=== PATIENT | male | born 1935 | race Caucasian/White ===

== ENCOUNTER → 2017-01-03 | Outpatient (CLI) | payer MEDICARE, OTHER ==
[~2017-01-03] MED LIST: ALLO100T PO; AMLO10TA2 PO; ASPI81CH49 PO; ATEN50TA80 PO; CALC0.25 PO; CLOP75TA28 PO; FURO20TA3 PO; GABA300C PO; INSUINJ2 SC; LISI-709 PO; NITROSTAT SL; PRAV20TA3 PO; TAM04C PO; [UNRECOGNIZED DRUG - OTHER] PO; [UNRECOGNIZED DRUG - OTHER] SC
== END | disposition home or self-care (01) ==
LOC: XYW 11:00
PROVIDERS: ATTEND Internal Medicine
DX: I08.3 Combined rheumatic disorders of mitral, aortic and tricuspid valves (principal); I25.10 Atherosclerotic heart disease of native coronary artery without angina pectoris; I31.3 Pericardial effusion (noninflammatory); R55 Syncope and collapse
CPT/HCPCS: 93306

== ENCOUNTER → 2017-02-13 | Outpatient (CLI) | payer MEDICARE, OTHER ==
[2017-02-13 10:41] LABS: Basophils # (auto) 0 uL; Basophils % (auto) 0.5 % (0.0-2.0); CONDITION Y; Eosinophils # (auto) 0.5 uL; Eosinophils % (auto) 4.9 % (0.0-7.0); Hematocrit 33.1 % (41.0-53.0); Hemoglobin 11.2 g/dL (13.5-17.5); Lymphocytes # (auto) 1.5 uL; Lymphocytes % (auto) 14.9 % (10.0-50.0); Mean Corpuscular Hemoglobin 32.7 pg (28.0-32.0); Mean Corpuscular Hgb Conc. 33.9 g/dL (32.0-36.0); Mean Corpuscular Volume 96.5 fL (80.0-100.0); Mean Platelet Volume 8.4 fL (7.4-10.4); Monocytes # (auto) 0.7 uL; Monocytes % (auto) 7.2 % (0.0-12.0); Neutrophils # (auto) 7.3 uL; Neutrophils % (auto) 72.5 % (37.0-80.0); Platelet Count (auto) 257 10^3/uL (140-450); Red Cell Distribution Width 14.5 % (11.6-16.0)
[2017-02-13 10:47] LABS: Albumin 3.1 g/dL (3.4-5.0); BUN/Creatinine Ratio 17.5; Bilirubin, Total 0.4 mg/dL (0.2-1.0); Calcium 8.6 mg/dL (8.5-10.1); Phosphorus 3.5 mg/dL (2.5-4.90); Potassium 5.1 mmol/L (3.5-5.1); Total Protein 6.7 g/dL (6.4-8.2); Uric Acid 10.9 mg/dL (3.5-7.2)
[2017-02-13 11:02] LABS: Urine Bilirubin Negative (Negative); Urine Blood Negative /uL (Negative); Urine Color Yellow (Yellow); Urine Glucose Normal (Normal); Urine Hyaline Cast FEW /lpf (0 - 2); Urine Ketone Negative (Negative); Urine Nitrite Negative (Negative); Urine RBC 1 /hpf (0 - 3); Urine Squamous Epithelial Cell FEW /hpf (<5); Urine Urobilinogen Normal (Negative)
== END | disposition home or self-care (01) ==
LOC: LAB 10:04
PROVIDERS: ATTEND Internal Medicine
DX: N40.1 Benign prostatic hyperplasia with lower urinary tract symptoms (principal); N13.4 Hydroureter; E11.9 Type 2 diabetes mellitus without complications; N39.0 Urinary tract infection, site not specified; I13.0 Hypertensive heart and chronic kidney disease with heart failure and stage 1 through stage 4 chronic kidney disease, or unspecified chronic kidney disease; I50.32 Chronic diastolic (congestive) heart failure; N18.4 Chronic kidney disease, stage 4 (severe)
CPT/HCPCS: 36415; 80053; 81001; 82043; 83970; 84100; 84153; 84154; 84550; 85025

== ENCOUNTER → 2017-03-14 | Outpatient (CLI) | payer MEDICARE, OTHER ==
[2017-03-14 10:00] LABS: Basophils # (auto) 0.1 uL; Basophils % (auto) 0.8 % (0.0-2.0); Eosinophils # (auto) 0.6 uL; Hematocrit 32.9 % (41.0-53.0); Hemoglobin 11.4 g/dL (13.5-17.5); Lymphocytes # (auto) 1.9 uL; Lymphocytes % (auto) 17.6 % (10.0-50.0); Mean Corpuscular Hemoglobin 33.9 pg (28.0-32.0); Mean Corpuscular Hgb Conc. 34.7 g/dL (32.0-36.0); Mean Corpuscular Volume 97.9 fL (80.0-100.0); Mean Platelet Volume 7.4 fL (6.9-10.8); Monocytes # (auto) 0.8 uL; Neutrophils # (auto) 7.2 uL; Neutrophils % (auto) 67.6 % (37.0-80.0); Platelet Count (auto) 219 10^3/uL (140-450); Red Cell Distribution Width 15.1 % (11.8-14.3); White Blood Cell 10.6 10^3/uL (4.4-10.8)
[2017-03-14 10:54] LABS: Albumin 3.1 g/dL (3.4-5.0); BUN/Creatinine Ratio 17.2; Bilirubin, Total 0.4 mg/dL (0.2-1.0); Calcium 8.7 mg/dL (8.5-10.1); Phosphorus 3.7 mg/dL (2.5-4.90); Potassium 4.5 mmol/L (3.5-5.1); Total Protein 6.8 g/dL (6.4-8.2); Uric Acid 8.6 mg/dL (3.5-7.2)
== END | disposition home or self-care (01) ==
LOC: LAB 09:44
PROVIDERS: ATTEND Internal Medicine
DX: E11.22 Type 2 diabetes mellitus with diabetic chronic kidney disease (principal); I13.0 Hypertensive heart and chronic kidney disease with heart failure and stage 1 through stage 4 chronic kidney disease, or unspecified chronic kidney disease; I50.32 Chronic diastolic (congestive) heart failure; N18.3 Chronic kidney disease, stage 3 (moderate)
CPT/HCPCS: 36415; 80053; 82043; 83970; 84100; 84550; 85025

== ENCOUNTER → 2017-03-28 | Outpatient (CLI) | payer MEDICARE, OTHER | END | disposition home or self-care (01) | LOC: Rad HDHVI 13:50 | PROVIDERS: ATTEND Internal Medicine Cardiovascular Disease | DX: I25.10 Atherosclerotic heart disease of native coronary artery without angina pectoris (principal); I13.0 Hypertensive heart and chronic kidney disease with heart failure and stage 1 through stage 4 chronic kidney disease, or unspecified chronic kidney disease; I50.32 Chronic diastolic (congestive) heart failure; N18.3 Chronic kidney disease, stage 3 (moderate) | CPT/HCPCS: 93306; 93880 ==

== ENCOUNTER → 2017-04-03 | Outpatient (CLI) | payer MEDICARE, OTHER ==
[~2017-04-03] MED LIST changes: +ADENOSINE 69 MG in GIVE UN-DILUTED 0 ML IV ONE; +ADENOSINE 90 MG/30 ML INJ IV ONE
== END | disposition home or self-care (01) ==
LOC: Rad HDHVI 10:06
PROVIDERS: ATTEND Internal Medicine Cardiovascular Disease
DX: I12.9 Hypertensive chronic kidney disease with stage 1 through stage 4 chronic kidney disease, or unspecified chronic kidney disease (principal); N18.3 Chronic kidney disease, stage 3 (moderate); E78.2 Mixed hyperlipidemia; I25.10 Atherosclerotic heart disease of native coronary artery without angina pectoris; I25.2 Old myocardial infarction; G62.9 Polyneuropathy, unspecified; Z95.5 Presence of coronary angioplasty implant and graft
CPT/HCPCS: 78452; 93005; 96374; 96375; A9500; J0153

== ENCOUNTER 2017-07-02 23:54 | Emergency (ER) | payer MEDICARE, OTHER ==
[~2017-07-02] VITALS: Ht 167.6 cm; Wt 76.2 kg
[~2017-07-02 23:54] MED LIST changes: -ADENOSINE 69 MG in GIVE UN-DILUTED 0 ML IV ONE; -ADENOSINE 90 MG/30 ML INJ IV ONE
[2017-07-03] MEDS ORDERED: ONDANSETRON ODT 4 MG TAB PO ONE (01:00)
[2017-07-03 01:20] LABS: Hematocrit 38.2 % (41.0-53.0); Hemoglobin 12.6 g/dL (13.5-17.5); Mean Corpuscular Hemoglobin 31.9 pg (28.0-32.0); Mean Corpuscular Volume 96.5 fL (80.0-100.0); Platelet Count (auto) 253 10^3/uL (140-450); Red Blood Cells 3.96 10^6/uL (4.5-5.90); Red Cell Distribution Width 15.2 % (11.8-14.3); White Blood Cell 15.8 10^3/uL (4.4-10.8)
[2017-07-03 01:25] LABS: Basophils % (manual) 0 (0.0-2.0); Blast Cells 0; Eosinophils % (manual) 0 (0-7); Metamyelocytes % 0; Myelocytes % 0; Promyelocytes % 0; Reactive Lymphocytes 0
[2017-07-03 01:29] LABS: Albumin 3.2 g/dL (3.4-5.0); BUN/Creatinine Ratio 15.4; Calcium 8.4 mg/dL (8.5-10.1); Potassium 4.6 mmol/L (3.5-5.1)
[2017-07-03 01:33] LABS: Bilirubin, Total 0.5 mg/dL (0.2-1.0)
[2017-07-03 01:38] VITALS: BP 123/93
[2017-07-03] MEDS ORDERED: ONDANSETRON HCL 4 MG/2 ML VIAL IV ONE (01:45)
[2017-07-03 01:57] LABS: Band Neutrophils % (manual) 2; Lymphocytes % (manual) 5 (10.0-50.0); Monocytes % (manual) 1 (0-12)
== END 2017-07-03 03:44 | disposition home or self-care (01) ==
LOC: ER 23:56
DX: E11.649 Type 2 diabetes mellitus with hypoglycemia without coma (principal); E11.22 Type 2 diabetes mellitus with diabetic chronic kidney disease; I13.0 Hypertensive heart and chronic kidney disease with heart failure and stage 1 through stage 4 chronic kidney disease, or unspecified chronic kidney disease; N18.3 Chronic kidney disease, stage 3 (moderate); I50.9 Heart failure, unspecified; Z79.4 Long term (current) use of insulin; E78.5 Hyperlipidemia, unspecified; I25.2 Old myocardial infarction; Z79.82 Long term (current) use of aspirin; Z88.0 Allergy status to penicillin
CPT/HCPCS: 36415; 71046; 80053; 85007; 85027; 94761; 96374; 99285; J2405

== ENCOUNTER → 2017-10-06 | Outpatient (CLI) | payer MEDICARE, OTHER ==
[2017-10-06 12:48] LABS: Basophils # (auto) 0.1 uL; Basophils % (auto) 0.8 % (0.0-2.0); Eosinophils # (auto) 0.5 uL; Eosinophils % (auto) 4.5 % (0.0-7.0); Hematocrit 35.9 % (41.0-53.0); Hemoglobin 11.9 g/dL (13.5-17.5); Lymphocytes # (auto) 1.6 uL; Lymphocytes % (auto) 15.8 % (10.0-50.0); Mean Corpuscular Hemoglobin 32.8 pg (28.0-32.0); Mean Corpuscular Hgb Conc. 33.2 g/dL (32.0-36.0); Mean Corpuscular Volume 98.7 fL (80.0-100.0); Monocytes # (auto) 0.8 uL; Monocytes % (auto) 7.3 % (0.0-12.0); Neutrophils # (auto) 7.4 uL; Neutrophils % (auto) 71.6 % (37.0-80.0); Platelet Count (auto) 217 10^3/uL (140-450); Red Blood Cells 3.64 10^6/uL (4.5-5.90); Red Cell Distribution Width 15.7 % (11.8-14.3); White Blood Cell 10.4 10^3/uL (4.4-10.8)
[2017-10-06 13:28] LABS: BUN/Creatinine Ratio 17.1; Bilirubin, Total 0.3 mg/dL (0.2-1.0); Calcium 8.7 mg/dL (8.5-10.1); Potassium 4.8 mmol/L (3.5-5.1); Total Protein 6.5 g/dL (6.4-8.2)
== END | disposition home or self-care (01) ==
LOC: LAB 12:10
PROVIDERS: ATTEND Internal Medicine
DX: E11.22 Type 2 diabetes mellitus with diabetic chronic kidney disease (principal); N18.4 Chronic kidney disease, stage 4 (severe); I12.9 Hypertensive chronic kidney disease with stage 1 through stage 4 chronic kidney disease, or unspecified chronic kidney disease; M06.9 Rheumatoid arthritis, unspecified; Z79.82 Long term (current) use of aspirin; Z79.4 Long term (current) use of insulin; Z79.899 Other long term (current) drug therapy
CPT/HCPCS: 36415; 80053; 83036; 83970; 84100; 84550; 85025

== ENCOUNTER → 2018-05-02 | Outpatient (CLI) | payer MEDICARE, OTHER ==
[~2018-05-02] MED LIST changes: -ALLO100T PO; -AMLO10TA2 PO; +AMLO5TAB13 PO; +ATEN-60 PO; -ATEN50TA80 PO; -FURO20TA3 PO; -INSUINJ2 SC; +INSUINJ48 SC; -LISI-709 PO; -[UNRECOGNIZED DRUG - OTHER] PO; -[UNRECOGNIZED DRUG - OTHER] SC
[2018-05-02 16:30] LABS: Basophils # (auto) 0.1 uL; Basophils % (auto) 0.8 % (0.0-2.0); Eosinophils # (auto) 0.5 uL; Eosinophils % (auto) 6.2 % (0.0-7.0); Hemoglobin 9.9 g/dL (13.5-17.5); Lymphocytes # (auto) 1.3 uL; Mean Corpuscular Hemoglobin 33.4 pg (28.0-32.0); Mean Corpuscular Hgb Conc. 33.1 g/dL (32.0-36.0); Mean Corpuscular Volume 101.1 fL (80.0-100.0); Monocytes # (auto) 0.6 uL; Monocytes % (auto) 7.9 % (0.0-12.0); Neutrophils # (auto) 4.9 uL; Neutrophils % (auto) 67.1 % (37.0-80.0); Nucleated Red Blood Cells % 0.1 %; Platelet Count (auto) 211 10^3/uL (140-450); Red Blood Cells 2.97 10^6/uL (4.5-5.90); Red Cell Distribution Width 16.1 % (11.8-14.3); White Blood Cell 7.3 10^3/uL (4.4-10.8)
[2018-05-02 16:46] LABS: Albumin 2.9 g/dL (3.4-5.0); Calcium 8.4 mg/dL (8.5-10.1); Potassium 4.1 mmol/L (3.5-5.1)
[2018-05-02 16:50] LABS: Bilirubin, Total 0.3 mg/dL (0.2-1.0); Total Protein 6.2 g/dL (6.4-8.2)
[2018-05-02 16:54] LABS: BUN/Creatinine Ratio 15.1
[2018-05-03 09:02] LABS: Hepatitis B Surface Antibody Negative
[2018-05-03 10:15] LABS: Hepatitis A Ab IgM Negative; Hepatitis B Core Total AB Negative; Hepatitis B Surface Antigen Negative (Negative); Hepatitis C Antibody Negative (Negative)
[2018-05-07 16:24] LABS: Hepatitis B Core IgM Negative
== END | disposition home or self-care (01) ==
LOC: LAB 15:42
PROVIDERS: ATTEND Internal Medicine
DX: E11.620 Type 2 diabetes mellitus with diabetic dermatitis (principal); E11.22 Type 2 diabetes mellitus with diabetic chronic kidney disease; I13.0 Hypertensive heart and chronic kidney disease with heart failure and stage 1 through stage 4 chronic kidney disease, or unspecified chronic kidney disease; N18.9 Chronic kidney disease, unspecified; I50.9 Heart failure, unspecified
CPT/HCPCS: 36415; 80053; 83036; 85025; 85652; 86225; 86235; 86704; 86705; 86706; 86709; 86803; 86812; 87340

== ENCOUNTER → 2018-06-28 | Outpatient (CLI) | payer MEDICARE, OTHER ==
[2018-06-28 15:35] LABS: Basophils # (auto) 0.1 uL; Basophils % (auto) 0.8 % (0.0-2.0); Eosinophils # (auto) 0.5 uL; Eosinophils % (auto) 6.1 % (0.0-7.0); Hematocrit 29.1 % (41.0-53.0); Hemoglobin 9.8 g/dL (13.5-17.5); Lymphocytes # (auto) 1.6 uL; Lymphocytes % (auto) 18.4 % (10.0-50.0); Mean Corpuscular Hemoglobin 33.9 pg (28.0-32.0); Mean Corpuscular Hgb Conc. 33.7 g/dL (32.0-36.0); Mean Corpuscular Volume 100.4 fL (80.0-100.0); Monocytes # (auto) 0.7 uL; Monocytes % (auto) 7.4 % (0.0-12.0); Neutrophils % (auto) 67.3 % (37.0-80.0); Nucleated Red Blood Cells % 0.1 %; Platelet Count (auto) 186 10^3/uL (140-450); Red Cell Distribution Width 15.4 % (11.8-14.3)
[2018-06-28 15:52] LABS: Potassium 4.2 mmol/L (3.5-5.1)
[2018-06-28 15:59] LABS: Albumin 2.7 g/dL (3.4-5.0); BUN/Creatinine Ratio 15.1; Bilirubin, Total 0.3 mg/dL (0.2-1.0); Calcium 7.9 mg/dL (8.5-10.1); Total Protein 5.7 g/dL (6.4-8.2); Uric Acid 5.1 mg/dL (3.5-7.2)
[2018-06-28 16:00] LABS: Free T4 (Free Thyroxine) 0.88 ng/dL (0.89-1.76)
[2018-06-28 16:25] LABS: Prostate Specific Antigen 4.25 ng/mL (0.0-4.0)
== END | disposition home or self-care (01) ==
LOC: LAB 14:56
PROVIDERS: ATTEND Internal Medicine
DX: E11.22 Type 2 diabetes mellitus with diabetic chronic kidney disease (principal); I13.0 Hypertensive heart and chronic kidney disease with heart failure and stage 1 through stage 4 chronic kidney disease, or unspecified chronic kidney disease; I50.9 Heart failure, unspecified; N18.3 Chronic kidney disease, stage 3 (moderate); M25.50 Pain in unspecified joint; R63.4 Abnormal weight loss; R39.15 Urgency of urination; R35.0 Frequency of micturition
CPT/HCPCS: 36415; 80053; 83036; 83970; 84153; 84154; 84439; 84443; 84550; 85025; 86038; 86200; 86431

== ENCOUNTER → 2018-08-07 | Outpatient (CLI) | payer MEDICARE, OTHER | END | disposition home or self-care (01) | LOC: LAB 14:56 | PROVIDERS: ATTEND Internal Medicine | DX: N39.0 Urinary tract infection, site not specified (principal) | CPT/HCPCS: 87086 ==

== ENCOUNTER 2018-11-30 18:23 | Inpatient (IN) | payer MEDICARE, OTHER | END 2018-12-01 13:30 | disposition home or self-care (01) | LOC: EAST 23:05 → ER 18:23 → OVERFLOW 22:17 → EAST 22:55 ==

== ENCOUNTER → 2018-12-11 | Outpatient (CLI) | payer MEDICARE, OTHER ==
[~2018-12-11] MED LIST changes: +ALL300T PO; -CALC0.25 PO; -NITROSTAT SL
== END | disposition home or self-care (01) ==
LOC: LAB 11:42
PROVIDERS: ATTEND Internal Medicine
DX: D64.9 Anemia, unspecified (principal); K52.9 Noninfective gastroenteritis and colitis, unspecified
CPT/HCPCS: 86900; 86901

== ENCOUNTER → 2018-12-12 | Outpatient (CLI) | payer MEDICARE, OTHER | END | disposition home or self-care (01) | LOC: LAB 11:57 | PROVIDERS: ATTEND Internal Medicine | DX: D64.9 Anemia, unspecified (principal); K52.9 Noninfective gastroenteritis and colitis, unspecified | CPT/HCPCS: 87493 ==

== ENCOUNTER 2018-12-19 10:35 | Emergency (ER) | payer MEDICARE, OTHER ==
[~2018-12-19] VITALS: Ht 167.6 cm; Wt 63.5 kg
[2018-12-19] MEDS ORDERED: SODIUM CHLORIDE 0.9% 1,000 ML IV ONE (11:02)
[2018-12-19 12:40] LABS: Basophils # (auto) 0.1 uL; Basophils % (auto) 1.2 % (0.0-2.0); Eosinophils # (auto) 0.8 uL; Eosinophils % (auto) 9.8 % (0.0-7.0); Neutrophils # (auto) 5.2 uL
[2018-12-19 12:45] LABS: Hematocrit 27.2 % (41.0-53.0); Hemoglobin 8.9 g/dL (13.5-17.5); Lymphocytes # (auto) 1.4 uL; Lymphocytes % (auto) 17.6 % (10.0-50.0); Mean Corpuscular Hemoglobin 33.4 pg (28.0-32.0); Mean Corpuscular Hgb Conc. 32.8 g/dL (32.0-36.0); Mean Corpuscular Volume 101.9 fL (80.0-100.0); Monocytes # (auto) 0.6 uL; Monocytes % (auto) 7.6 % (0.0-12.0); Neutrophils % (auto) 63.8 % (37.0-80.0); Platelet Count (auto) 233 10^3/uL (140-450); Potassium 3.9 mmol/L (3.5-5.1); Red Blood Cells 2.67 10^6/uL (4.5-5.90); Red Cell Distribution Width 17.7 % (11.8-14.3); White Blood Cell 8.2 10^3/uL (4.4-10.8)
[2018-12-19 12:49] LABS: Albumin 2.5 g/dL (3.4-5.0); BUN/Creatinine Ratio 13.6; Calcium 8.5 mg/dL (8.5-10.1)
[2018-12-19 12:50] LABS: Magnesium 2.4 mg/dL (1.6-2.6)
[2018-12-19 12:51] LABS: Bilirubin, Total 0.2 mg/dL (0.2-1.0); Total Protein 5.8 g/dL (6.4-8.2)
[2018-12-19 13:12] LABS: INR 1.03 (0.9-1.15); Partial Thromboplastin Time 24.5 sec (23.64-32.05)
[2018-12-19 14:41] VITALS: BP 174/69
[2018-12-19 15:23] LABS: Urine Bacteria NONE SEEN /hpf (None Seen); Urine Blood Negative /uL (Negative); Urine Hyaline Cast FEW /lpf (0 - 2); Urine Specific Gravity 1.013 (1.001-1.035); Urine WBC 23 /hpf (0 - 3)
== END 2018-12-19 14:53 | disposition home or self-care (01) ==
LOC: ER 10:38
DX: E11.21 Type 2 diabetes mellitus with diabetic nephropathy (principal); I13.0 Hypertensive heart and chronic kidney disease with heart failure and stage 1 through stage 4 chronic kidney disease, or unspecified chronic kidney disease; E11.22 Type 2 diabetes mellitus with diabetic chronic kidney disease; N18.9 Chronic kidney disease, unspecified; I50.9 Heart failure, unspecified; D63.1 Anemia in chronic kidney disease; R80.9 Proteinuria, unspecified; E43 Unspecified severe protein-calorie malnutrition; J90 Pleural effusion, not elsewhere classified; N40.0 Benign prostatic hyperplasia without lower urinary tract symptoms; K40.90 Unilateral inguinal hernia, without obstruction or gangrene, not specified as recurrent; E78.5 Hyperlipidemia, unspecified; I25.2 Old myocardial infarction; Z86.73 Personal history of transient ischemic attack (TIA), and cerebral infarction without residual deficits; Z68.22 Body mass index [BMI] 22.0-22.9, adult; Z79.4 Long term (current) use of insulin; Z98.61 Coronary angioplasty status; Z90.49 Acquired absence of other specified parts of digestive tract; Z88.0 Allergy status to penicillin; Z79.899 Other long term (current) drug therapy
CPT/HCPCS: 36415; 71046; 74176; 80053; 81001; 83690; 83735; 84443; 84484; 85025; 85610; 85730; 93005; 94761; 96360; 96361; 99284; J7030

== ENCOUNTER → 2019-06-03 | Outpatient (CLI) | payer MEDICARE, OTHER ==
[~2019-06-03] MED LIST changes: -AMLO5TAB13 PO; +AMLO5TAB15 PO
[2019-06-03 09:48] LABS: Basophils # (auto) 0.1 uL; Hemoglobin 9.5 g/dL (13.5-17.5); Monocytes # (auto) 0.5 uL; Neutrophils # (auto) 4.8 uL; Red Cell Distribution Width 15.5 % (11.8-14.3); White Blood Cell 7.6 10^3/uL (4.4-10.8)
[2019-06-03 09:52] LABS: Basophils % (auto) 0.9 % (0.0-2.0); Eosinophils # (auto) 0.6 uL; Eosinophils % (auto) 7.3 % (0.0-7.0); Hematocrit 28.4 % (41.0-53.0); Lymphocytes # (auto) 1.6 uL; Lymphocytes % (auto) 21.1 % (10.0-50.0); Mean Corpuscular Hemoglobin 34.1 pg (28.0-32.0); Mean Corpuscular Hgb Conc. 33.6 g/dL (32.0-36.0); Mean Corpuscular Volume 101.6 fL (80.0-100.0); Monocytes % (auto) 7.1 % (0.0-12.0); Neutrophils % (auto) 63.6 % (37.0-80.0); Platelet Count (auto) 204 10^3/uL (140-450); Red Blood Cells 2.79 10^6/uL (4.5-5.90)
[2019-06-03 11:33] LABS: Albumin 2.6 g/dL (3.4-5.0); BUN/Creatinine Ratio 14.9; Bilirubin, Total 0.4 mg/dL (0.2-1.0); Calcium 8.3 mg/dL (8.5-10.1); Total Protein 5.6 g/dL (6.4-8.2)
== END | disposition home or self-care (01) ==
LOC: LAB 08:46
PROVIDERS: ATTEND Internal Medicine
DX: E11.319 Type 2 diabetes mellitus with unspecified diabetic retinopathy without macular edema (principal); E11.22 Type 2 diabetes mellitus with diabetic chronic kidney disease; I13.0 Hypertensive heart and chronic kidney disease with heart failure and stage 1 through stage 4 chronic kidney disease, or unspecified chronic kidney disease; N18.9 Chronic kidney disease, unspecified; I50.9 Heart failure, unspecified
CPT/HCPCS: 36415; 80053; 80061; 83036; 84439; 84443; 85025; 85652

== ENCOUNTER → 2019-08-01 | Outpatient (CLI) | payer OTHER ==
[~2019-08-01] MED LIST changes: +FURO40TA4 PO; +POTA10TA51 PO
[2019-08-01 13:11] LABS: BUN/Creatinine Ratio 13.6; Calcium 8.4 mg/dL (8.5-10.1); Magnesium 1.9 mg/dL (1.6-2.6); Potassium 3.6 mmol/L (3.5-5.1)
== END | disposition home or self-care (01) ==
LOC: LAB 12:32
PROVIDERS: ATTEND Internal Medicine
DX: E11.22 Type 2 diabetes mellitus with diabetic chronic kidney disease (principal); N18.5 Chronic kidney disease, stage 5; R35.8 Other polyuria
CPT/HCPCS: 36415; 80048; 83735

== ENCOUNTER → 2019-10-10 | Outpatient (CLI) | payer OTHER ==
[2019-10-10 13:02] LABS: Basophils # (auto) 0.1 10 ^3/uL (0-0.2); Eosinophils # (auto) 0.5 10 ^3/uL (0-0.8); Eosinophils % (auto) 6.2 % (0.0-7.0); Hematocrit 25.9 % (41.0-53.0); Hemoglobin 8.7 g/dL (13.5-17.5); Lymphocytes # (auto) 1.4 10 ^3/uL (0.4-5.4); Lymphocytes % (auto) 16.8 % (10.0-50.0); Mean Corpuscular Hemoglobin 33.8 pg (28.0-32.0); Mean Corpuscular Hgb Conc. 33.5 g/dL (32.0-36.0); Mean Corpuscular Volume 100.8 fL (80.0-100.0); Monocytes # (auto) 0.5 10 ^3/uL (0-1.3); Monocytes % (auto) 6.4 % (0.0-12.0); Neutrophils # (auto) 5.7 10 ^3/uL (1.6-8.6); Neutrophils % (auto) 69.6 % (37.0-80.0); Platelet Count (auto) 238 10^3/uL (140-450); Red Blood Cells 2.57 10^6/uL (4.5-5.90); White Blood Cell 8.3 10^3/uL (4.4-10.8)
[2019-10-10 14:20] LABS: Albumin 2.2 g/dL (3.4-5.0); Potassium 3.9 mmol/L (3.5-5.1)
[2019-10-10 14:24] LABS: BUN/Creatinine Ratio 13.4; Bilirubin, Total 0.3 mg/dL (0.2-1.0); Total Protein 5.7 g/dL (6.4-8.2); Uric Acid 6.5 mg/dL (3.5-7.2)
== END | disposition home or self-care (01) ==
LOC: LAB 12:35
PROVIDERS: ATTEND Internal Medicine
DX: E11.22 Type 2 diabetes mellitus with diabetic chronic kidney disease (principal); N18.4 Chronic kidney disease, stage 4 (severe)
CPT/HCPCS: 36415; 80053; 83036; 84550; 85025

== ENCOUNTER 2019-10-18 12:21 | Inpatient (IN) | payer OTHER ==
[~2019-10-18] VITALS: Ht 165.1 cm; Wt 67.1 kg
[2019-10-18 12:57] LABS: Basophils # (auto) 0.1 10 ^3/uL (0-0.2); Hemoglobin 8.3 g/dL (13.5-17.5); Lymphocytes # (auto) 1.3 10 ^3/uL (0.4-5.4); Monocytes # (auto) 0.7 10 ^3/uL (0-1.3); Monocytes % (auto) 8.2 % (0.0-12.0)
[2019-10-18 12:59] LABS: Eosinophils # (auto) 0.4 10 ^3/uL (0-0.8); Eosinophils % (auto) 4.6 % (0.0-7.0); Hematocrit 25.6 % (41.0-53.0); Lymphocytes % (auto) 16.1 % (10.0-50.0); Mean Corpuscular Hemoglobin 32.7 pg (28.0-32.0); Mean Corpuscular Hgb Conc. 32.4 g/dL (32.0-36.0); Mean Corpuscular Volume 100.8 fL (80.0-100.0); Neutrophils # (auto) 5.7 10 ^3/uL (1.6-8.6); Neutrophils % (auto) 70.1 % (37.0-80.0); Platelet Count (auto) 231 10^3/uL (140-450); Red Blood Cells 2.54 10^6/uL (4.5-5.90); Red Cell Distribution Width 16.4 % (11.8-14.3); White Blood Cell 8.2 10^3/uL (4.4-10.8)
[2019-10-18 13:11] LABS: Albumin 2.2 g/dL (3.4-5.0); Calcium 8.1 mg/dL (8.5-10.1); Potassium 4.3 mmol/L (3.5-5.1)
[2019-10-18 13:18] LABS: BUN/Creatinine Ratio 11.9; Bilirubin, Total 0.3 mg/dL (0.2-1.0); Total Protein 5.5 g/dL (6.4-8.2)
[2019-10-18] MEDS ORDERED: LORazepam 0.5 MG TAB PO PRN (14:30)
[2019-10-18] MEDS ORDERED: NITROGLYCERIN 0.4 MG SL TAB SL PRN ×2 (14:30)
[2019-10-18] MEDS ORDERED: ONDANSETRON HCL 4 MG/2 ML VIAL IV PRN (14:30)
[2019-10-18] MEDS ORDERED: MORPHINE SULF INJ 2 MG/ML SYRINGE 1ML IV PRN (14:30)
[2019-10-18] MEDS ORDERED: FUROSEMIDE 100 MG/10ML VIAL IV ONE (14:30)
[2019-10-18] MEDS ORDERED: ASPirin 81 mg TAB PO ONE (14:30)
[2019-10-18] MEDS ORDERED: hydrALAZINE HCL 20 MG/ML VL IV PRN (17:15)
[2019-10-18] MEDS: hydrALAZINE HCL 20 MG/ML VL IV PRN (17:57)
[2019-10-18] MEDS: GABAPENTIN 300 MG CAP PO SCH (18:45)
[2019-10-18 18:49] VITALS: BP 139/68
[2019-10-18] MEDS: FUROSEMIDE 20 MG/2 ML VIAL IV SCH (18:50)
[2019-10-18 21:29] VITALS: BP 143/50
[2019-10-18] MEDS: ATORVASTATIN 20 MG TAB PO SCH (21:40)
[2019-10-19] MEDS: hydrALAZINE HCL 20 MG/ML VL IV PRN (05:01)
[2019-10-19 05:04] VITALS: BP 169/51
[2019-10-19] MEDS: FUROSEMIDE 20 MG/2 ML VIAL IV SCH ×2 (05:22→18:05)
[2019-10-19] MEDS: TAMSULOSIN HYDROCHLORIDE 0.4 MG CAP PO SCH (06:33)
[2019-10-19] MEDS: ASPirin 81 mg TAB PO SCH (06:33)
[2019-10-19] MEDS: CLOPIDOGREL BISULFATE 75 MG TAB PO SCH (06:33)
[2019-10-19 06:58] LABS: Basophils # (auto) 0.1 10 ^3/uL (0-0.2); Basophils % (auto) 0.9 % (0.0-2.0); Eosinophils # (auto) 0.4 10 ^3/uL (0-0.8); Eosinophils % (auto) 4.9 % (0.0-7.0); Hematocrit 28.7 % (41.0-53.0); Hemoglobin 9.6 g/dL (13.5-17.5); Lymphocytes # (auto) 1.4 10 ^3/uL (0.4-5.4); Lymphocytes % (auto) 15.7 % (10.0-50.0); Mean Corpuscular Hemoglobin 33.5 pg (28.0-32.0); Mean Corpuscular Hgb Conc. 33.4 g/dL (32.0-36.0); Mean Corpuscular Volume 100.4 fL (80.0-100.0); Monocytes # (auto) 0.6 10 ^3/uL (0-1.3); Monocytes % (auto) 6.6 % (0.0-12.0); Neutrophils # (auto) 6.3 10 ^3/uL (1.6-8.6); Neutrophils % (auto) 71.9 % (37.0-80.0); Platelet Count (auto) 246 10^3/uL (140-450); Red Blood Cells 2.85 10^6/uL (4.5-5.90); Red Cell Distribution Width 16.1 % (11.8-14.3); White Blood Cell 8.8 10^3/uL (4.4-10.8)
[2019-10-19 07:15] LABS: INR 1.08 (0.9-1.15); Partial Thromboplastin Time 27.2 sec (23.64-32.05)
[2019-10-19 07:31] LABS: Calcium 8.4 mg/dL (8.5-10.1); Potassium 4.3 mmol/L (3.5-5.1)
[2019-10-19 07:37] LABS: Albumin 2.5 g/dL (3.4-5.0); BUN/Creatinine Ratio 13.7; Bilirubin, Total 0.5 mg/dL (0.2-1.0); Total Protein 6.1 g/dL (6.4-8.2)
[2019-10-19 08:00] VITALS: BP 151/55
[2019-10-19 08:24] VITALS: BP 151/55
[2019-10-19 08:57] LABS: Urine Bacteria NONE SEEN /hpf (None Seen); Urine Blood Negative /uL (Negative); Urine Hyaline Cast FEW /lpf (0 - 2); Urine Specific Gravity 1.011 (1.001-1.035); Urine WBC 23 /hpf (0 - 3)
[2019-10-19] MEDS ORDERED: INSUINJ48 SC (09:22)
[2019-10-19] MEDS: amLODIPine BESYLATE 5 MG TAB PO SCH (09:50)
[2019-10-19] MEDS: DOCUSATE SOD 100 MG CAP PO SCH (09:50)
[2019-10-19] MEDS: ATENOLOL 25 MG TAB PO SCH (09:51)
[2019-10-19] MEDS: ALLOPURINOL 300 MG TAB PO SCH (09:51)
[2019-10-19] MEDS: ENOXAPARIN SOD 30 MG/0.3 ML SYRINGE SC SCH (09:51)
[2019-10-19] MEDS ORDERED: PRAVASTATIN SODIUM 20 MG TAB PO SCH (10:00)
[2019-10-19] MEDS ORDERED: DEXTROSE (50%) 50ML SYRG IV PRN (11:45)
[2019-10-19] MEDS: ACCU-CHEK COMFORT CURVE STRIP VI SCH ×3 (12:26→21:47)
[2019-10-19] MEDS: InsuLIN REG 1unit/0.01ml Soln (100units/ml) SC SCH ×2 (12:26→17:23)
[2019-10-19 12:57] VITALS: BP 149/88
[2019-10-19] MEDS ORDERED: ACCU-CHEK COMFORT CURVE STRIP VI SCH (17:00)
[2019-10-19] MEDS ORDERED: InsuLIN REG 1unit/0.01ml Soln (100units/ml) SC SCH ×2 (17:00→22:00)
[2019-10-19] MEDS: GABAPENTIN 300 MG CAP PO SCH (18:05)
[2019-10-19] MEDS: ATORVASTATIN 20 MG TAB PO SCH (21:15)
[2019-10-19 22:00] VITALS: BP 147/71
[2019-10-20 05:00] VITALS: BP 150/62
[2019-10-20] MEDS: FUROSEMIDE 20 MG/2 ML VIAL IV SCH (05:34)
[2019-10-20] MEDS: TAMSULOSIN HYDROCHLORIDE 0.4 MG CAP PO SCH (06:17)
[2019-10-20] MEDS: CLOPIDOGREL BISULFATE 75 MG TAB PO SCH (06:17)
[2019-10-20] MEDS: ASPirin 81 mg TAB PO SCH (06:18)
[2019-10-20] MEDS: ACCU-CHEK COMFORT CURVE STRIP VI SCH (06:18)
[2019-10-20] MEDS: InsuLIN REG 1unit/0.01ml Soln (100units/ml) SC SCH (06:20)
[2019-10-20 09:02] VITALS: BP 116/49
[2019-10-20] MEDS: DOCUSATE SOD 100 MG CAP PO SCH (09:02)
[2019-10-20] MEDS: amLODIPine BESYLATE 5 MG TAB PO SCH (09:02)
[2019-10-20] MEDS: ALLOPURINOL 300 MG TAB PO SCH (09:02)
[2019-10-20] MEDS: ATENOLOL 25 MG TAB PO SCH (09:03)
[2019-10-20] MEDS: ENOXAPARIN SOD 30 MG/0.3 ML SYRINGE SC SCH (09:04)
[2019-10-20 12:48] VITALS: BP 92/55
== END 2019-10-20 13:36 | disposition home or self-care (01) | DRG 291 ==
LOC: ER 12:21 → TELE 12:22 → TELE-WESTW 18:43
PROVIDERS: ADMIT Hospitalist; ATTEND Hospitalist
DX: I13.0 Hypertensive heart and chronic kidney disease with heart failure and stage 1 through stage 4 chronic kidney disease, or unspecified chronic kidney disease (principal); N17.0 Acute kidney failure with tubular necrosis; I50.43 Acute on chronic combined systolic (congestive) and diastolic (congestive) heart failure; E44.0 Moderate protein-calorie malnutrition; E78.5 Hyperlipidemia, unspecified; I25.10 Atherosclerotic heart disease of native coronary artery without angina pectoris; M10.9 Gout, unspecified; N18.3 Chronic kidney disease, stage 3 (moderate); N40.0 Benign prostatic hyperplasia without lower urinary tract symptoms; Z79.02 Long term (current) use of antithrombotics/antiplatelets; Z79.82 Long term (current) use of aspirin; Z79.899 Other long term (current) drug therapy; Z86.73 Personal history of transient ischemic attack (TIA), and cerebral infarction without residual deficits; Z90.49 Acquired absence of other specified parts of digestive tract; Z95.5 Presence of coronary angioplasty implant and graft; E11.40 Type 2 diabetes mellitus with diabetic neuropathy, unspecified; E11.22 Type 2 diabetes mellitus with diabetic chronic kidney disease; D75.89 Other specified diseases of blood and blood-forming organs; E78.00 Pure hypercholesterolemia, unspecified
CPT/HCPCS: 36415; 71045; 80053; 80061; 81001; 82962; 83735; 83880; 84100; 84484; 85025; 85610; 85730; 93005; 94760; 96374; 96375; 99291; G0378; J1815

== ENCOUNTER → 2019-12-06 | Outpatient (CLI) | payer OTHER ==
[~2019-12-06] MED LIST changes: -POTA10TA51 PO
[2019-12-06 14:30] LABS: Eosinophils # (auto) 0.4 10 ^3/uL (0-0.8); Hemoglobin 7.5 g/dL (13.5-17.5); Lymphocytes # (auto) 1.2 10 ^3/uL (0.4-5.4); Monocytes # (auto) 0.6 10 ^3/uL (0-1.3); White Blood Cell 7.3 10^3/uL (4.4-10.8)
[2019-12-06 14:32] LABS: Basophils # (auto) 0 10 ^3/uL (0-0.2); Basophils % (auto) 0.7 % (0.0-2.0); Eosinophils % (auto) 5.8 % (0.0-7.0); Hematocrit 22.9 % (41.0-53.0); Lymphocytes % (auto) 16.9 % (10.0-50.0); Mean Corpuscular Hemoglobin 33.8 pg (28.0-32.0); Mean Corpuscular Hgb Conc. 32.7 g/dL (32.0-36.0); Mean Corpuscular Volume 103.3 fL (80.0-100.0); Monocytes % (auto) 7.6 % (0.0-12.0); Platelet Count (auto) 239 10^3/uL (140-450); Red Blood Cells 2.22 10^6/uL (4.5-5.90); Red Cell Distribution Width 15.8 % (11.8-14.3)
[2019-12-06 14:53] LABS: Albumin 2.4 g/dL (3.4-5.0); Calcium 8.1 mg/dL (8.5-10.1); Potassium 4.1 mmol/L (3.5-5.1)
[2019-12-06 14:56] LABS: BUN/Creatinine Ratio 14.9; Bilirubin, Total 0.2 mg/dL (0.2-1.0); Total Protein 5.9 g/dL (6.4-8.2)
== END | disposition home or self-care (01) ==
LOC: LAB 14:12
PROVIDERS: ATTEND Internal Medicine
DX: E11.22 Type 2 diabetes mellitus with diabetic chronic kidney disease (principal); N18.4 Chronic kidney disease, stage 4 (severe)
CPT/HCPCS: 36415; 80053; 85025

== ENCOUNTER 2020-01-04 15:55 | Inpatient (IN) | payer OTHER ==
[~2020-01-04] VITALS: Ht 167.6 cm; Wt 63.5 kg
[2020-01-04] MEDS ORDERED: SODIUM CHLORIDE 0.9% 1,000 ML IV ONE (16:01)
[2020-01-04 17:10] LABS: Basophils # (auto) 0.1 10 ^3/uL (0-0.2); Basophils % (auto) 0.9 % (0.0-2.0); Eosinophils # (auto) 0.3 10 ^3/uL (0-0.8); Eosinophils % (auto) 4.8 % (0.0-7.0); Hematocrit 24.8 % (41.0-53.0); Lymphocytes # (auto) 1.2 10 ^3/uL (0.4-5.4); Lymphocytes % (auto) 16.9 % (10.0-50.0); Mean Corpuscular Hemoglobin 33.5 pg (28.0-32.0); Mean Corpuscular Hgb Conc. 32.4 g/dL (32.0-36.0); Mean Corpuscular Volume 103.4 fL (80.0-100.0); Monocytes # (auto) 0.8 10 ^3/uL (0-1.3); Monocytes % (auto) 11.3 % (0.0-12.0); Neutrophils # (auto) 4.7 10 ^3/uL (1.6-8.6); Neutrophils % (auto) 66.1 % (37.0-80.0); Platelet Count (auto) 210 10^3/uL (140-450); Red Cell Distribution Width 15.9 % (11.8-14.3); White Blood Cell 7.1 10^3/uL (4.4-10.8)
[2020-01-04 17:25] LABS: INR 1.05 (0.9-1.15); Partial Thromboplastin Time 27.5 sec (23.64-32.05)
[2020-01-04 17:30] LABS: Albumin 2.3 g/dL (3.4-5.0); Anion Gap 9 (5-15); Blood Urea Nitrogen 68 mg/dL (7-18); Calcium 8.1 mg/dL (8.5-10.1); Carbon Dioxide 23 mmol/L (21-32); Chloride 109 mmol/L (98-107); Glucose 167 mg/dL (74-106); Potassium 4.4 mmol/L (3.5-5.1); Sodium 141 mmol/L (136-145)
[2020-01-04 17:35] LABS: Alanine Aminotransferase 69 U/L (16-61); Alkaline Phosphatase 107 U/L (45-117); Aspartate Aminotransferase 37 U/L (15-37); Bilirubin, Total 0.2 mg/dL (0.2-1.0); GFR African American 21 mL/min; GFR Non-African American 17 mL/min; Total Protein 6.1 g/dL (6.4-8.2)
[2020-01-04] MEDS ORDERED: ACETAMINOPHEN 325 MG TAB PO PRN (21:00)
[2020-01-04] MEDS ORDERED: ONDANSETRON HCL 4 MG/2 ML VIAL IV PRN (21:00)
[2020-01-04] MEDS ORDERED: NITROGLYCERIN 0.4 MG SL TAB SL PRN (21:00)
[2020-01-04] MEDS ORDERED: MORPHINE SULF INJ 2 MG/ML SYRINGE 1ML IV PRN ×2 (21:00)
[2020-01-04] MEDS ORDERED: DEXTROSE (50%) 50ML SYRG IV PRN (21:00)
[2020-01-04] MEDS ORDERED: HYDROcodone-ACET 5/325MG TAB PO PRN (21:00)
[2020-01-04] MEDS ORDERED: DOCUSATE SOD 100 MG CAP PO PRN (21:00)
[2020-01-04 21:30] LABS: Cholesterol 84 mg/dL (< 200)
[2020-01-04 21:33] LABS: HDL Cholesterol 40 mg/dL (40-59); LDL Cholesterol 40 mg/dL (< 100); Triglycerides 86 mg/dL (< 150)
[2020-01-05] MEDS: InsuLIN REG 1unit/0.01ml Soln (100units/ml) SC SCH ×3 (00:15→12:00)
[2020-01-05 05:00] VITALS: BP 122/50
[2020-01-05] MEDS: ACCU-CHEK COMFORT CURVE STRIP VI SCH ×3 (06:00→12:00)
--- NOTE | 2020-01-05 07:30 | NUR ---
Opening Shift Note Assuming care of patient at this time. Patient is awake, alert, and oriented x4. Patient denies pain. Patient shows no signs or symptoms of distress or shortness of breath. Patient is yelling and using profanity because he wants to go home. Notified him that this RN would let the MD know about his wishes. Bed is locked and lowered with side rails up x2. Instructed patient on the plan of care for today and to call for assistance as needed. Call light within reach. Sitter at bedside for safety.
[2020-01-05 11:12] LABS: Basophils # (auto) 0 10 ^3/uL (0-0.2); Basophils % (auto) 0.2 % (0.0-2.0); Eosinophils # (auto) 0 10 ^3/uL (0-0.8); Lymphocytes # (auto) 0.6 10 ^3/uL (0.4-5.4); Lymphocytes % (auto) 6.7 % (10.0-50.0); Monocytes # (auto) 0.1 10 ^3/uL (0-1.3); Monocytes % (auto) 0.8 % (0.0-12.0); Neutrophils # (auto) 7.7 10 ^3/uL (1.6-8.6)
[2020-01-05 11:14] LABS: Eosinophils % (auto) 0.1 % (0.0-7.0); Hematocrit 28.4 % (41.0-53.0); Hemoglobin 9.1 g/dL (13.5-17.5); Mean Corpuscular Hemoglobin 33.9 pg (28.0-32.0); Mean Corpuscular Volume 105.8 fL (80.0-100.0); Neutrophils % (auto) 92.2 % (37.0-80.0); Platelet Count (auto) 237 10^3/uL (140-450); Red Blood Cells 2.69 10^6/uL (4.5-5.90); Red Cell Distribution Width 16.1 % (11.8-14.3); White Blood Cell 8.4 10^3/uL (4.4-10.8)
[2020-01-05 11:38] LABS: Calcium 8.8 mg/dL (8.5-10.1); Potassium 5.2 mmol/L (3.5-5.1)
[2020-01-05 11:40] LABS: BUN/Creatinine Ratio 19.5
[2020-01-05 12:58] VITALS: BP 95/63
--- NOTE | 2020-01-05 13:40 | NUR ---
Discharge Discharge instructions given as ordered. Encourage to follow up with PMD as instructed. All questions and concerns addressed. Patient verbalized understanding. Medication reconciliation form completed and copy given to patient. IV removed with catheter intact, pressure dressing applied. Telemetry unit returned to ICU. Patient taken to vehicle via wheelchair with all personal belongings, accompanied by staff and family member. No distress noted at time of departure.
== END 2020-01-05 13:50 | disposition home or self-care (01) | DRG 312 ==
LOC: ER 15:55 → TELE 15:56 → TELE-WESTW 22:35
PROVIDERS: ADMIT Hospitalist; ATTEND Hospitalist
DX: R55 Syncope and collapse (principal); E43 Unspecified severe protein-calorie malnutrition; N18.4 Chronic kidney disease, stage 4 (severe); I13.0 Hypertensive heart and chronic kidney disease with heart failure and stage 1 through stage 4 chronic kidney disease, or unspecified chronic kidney disease; D64.9 Anemia, unspecified; E11.22 Type 2 diabetes mellitus with diabetic chronic kidney disease; I50.9 Heart failure, unspecified; E78.5 Hyperlipidemia, unspecified; I25.10 Atherosclerotic heart disease of native coronary artery without angina pectoris; N40.0 Benign prostatic hyperplasia without lower urinary tract symptoms; Z86.73 Personal history of transient ischemic attack (TIA), and cerebral infarction without residual deficits; I25.2 Old myocardial infarction; Z88.0 Allergy status to penicillin; Z90.49 Acquired absence of other specified parts of digestive tract; Z68.22 Body mass index [BMI] 22.0-22.9, adult
CPT/HCPCS: 36415; 70450; 71045; 80048; 80053; 80061; 80320; 82962; 83036; 83880; 84484; 85025; 85610; 85730; 99291; G0378; J1815

== ENCOUNTER → 2020-01-17 | Outpatient (CLI) | payer OTHER ==
[2020-01-17 12:32] LABS: Basophils # (auto) 0.1 10 ^3/uL (0-0.2); Eosinophils # (auto) 0.2 10 ^3/uL (0-0.8); Hematocrit 27.2 % (41.0-53.0); Hemoglobin 8.9 g/dL (13.5-17.5); Monocytes # (auto) 0.6 10 ^3/uL (0-1.3); Monocytes % (auto) 6.6 % (0.0-12.0)
[2020-01-17 12:34] LABS: Basophils % (auto) 0.7 % (0.0-2.0); Lymphocytes # (auto) 1.4 10 ^3/uL (0.4-5.4); Mean Corpuscular Hemoglobin 33.6 pg (28.0-32.0); Mean Corpuscular Hgb Conc. 32.6 g/dL (32.0-36.0); Mean Corpuscular Volume 103.1 fL (80.0-100.0); Neutrophils # (auto) 6.6 10 ^3/uL (1.6-8.6); Neutrophils % (auto) 74.7 % (37.0-80.0); Platelet Count (auto) 243 10^3/uL (140-450); Red Blood Cells 2.64 10^6/uL (4.5-5.90); Red Cell Distribution Width 15.7 % (11.8-14.3); White Blood Cell 8.9 10^3/uL (4.4-10.8)
[2020-01-17 13:44] LABS: Albumin 2.4 g/dL (3.4-5.0); Calcium 8.5 mg/dL (8.5-10.1); Potassium 4.1 mmol/L (3.5-5.1)
[2020-01-17 13:51] LABS: BUN/Creatinine Ratio 21.7; Bilirubin, Total 0.2 mg/dL (0.2-1.0); Total Protein 6.4 g/dL (6.4-8.2)
== END | disposition home or self-care (01) ==
LOC: LAB 12:20
PROVIDERS: ATTEND Internal Medicine
DX: D64.9 Anemia, unspecified (principal); N18.6 End stage renal disease
CPT/HCPCS: 36415; 80053; 85025

== ENCOUNTER 2020-02-28 19:17 | Inpatient (IN) | payer OTHER ==
[~2020-02-28] VITALS: Ht 175.3 cm; Wt 71.0 kg
[2020-02-28 22:54] LABS: Lymphocytes # (auto) 1.3 10 ^3/uL (0.4-5.4); Monocytes # (auto) 0.6 10 ^3/uL (0-1.3); Neutrophils # (auto) 7.2 10 ^3/uL (1.6-8.6)
[2020-02-28 22:55] LABS: Basophils # (auto) 0.1 10 ^3/uL (0-0.2); Basophils % (auto) 0.7 % (0.0-2.0); Eosinophils # (auto) 0.5 10 ^3/uL (0-0.8); Eosinophils % (auto) 5.1 % (0.0-7.0); Hematocrit 20.5 % (41.0-53.0); Lymphocytes % (auto) 13.3 % (10.0-50.0); Mean Corpuscular Hemoglobin 32.5 pg (28.0-32.0); Mean Corpuscular Hgb Conc. 32.6 g/dL (32.0-36.0); Mean Corpuscular Volume 99.7 fL (80.0-100.0); Monocytes % (auto) 6.5 % (0.0-12.0); Neutrophils % (auto) 74.4 % (37.0-80.0); Nucleated Red Blood Cells % 0.1 %; Platelet Count (auto) 268 10^3/uL (140-450); Red Blood Cells 2.06 10^6/uL (4.5-5.90); Red Cell Distribution Width 15.7 % (11.8-14.3); White Blood Cell 9.7 10^3/uL (4.4-10.8)
[2020-02-28 23:10] LABS: Albumin 1.7 g/dL (3.4-5.0); BUN/Creatinine Ratio 16.7; Calcium 7.8 mg/dL (8.5-10.1); Potassium 4.1 mmol/L (3.5-5.1)
[2020-02-28 23:15] LABS: Bilirubin, Total 0.4 mg/dL (0.2-1.0); Total Protein 5.6 g/dL (6.4-8.2)
[2020-02-28 23:30] LABS: Hemoglobin 6.7 g/dL (13.5-17.5)
[2020-02-29] VITALS (10 sets, daily range): BP systolic 94–121; BP diastolic 49–66
[2020-02-29] MEDS ORDERED: ENOXAPARIN SOD 60 MG/0.6 ML SYRINGE SC ONE (01:00)
[2020-02-29] MEDS ORDERED: MORPHINE SULF INJ 2 MG/ML SYRINGE 1ML IV PRN (01:15)
[2020-02-29] MEDS ORDERED: METOPROLOL TARTRATE 1MG/1ML-5ML VIAL IV PRN (01:15)
[2020-02-29] MEDS ORDERED: NITROGLYCERIN 0.4 MG SL TAB SL PRN (01:15)
[2020-02-29] MEDS ORDERED: ONDANSETRON HCL 4 MG/2 ML VIAL IV PRN (01:15)
[2020-02-29] MEDS ORDERED: ACETAMINOPHEN 325 MG TAB PO PRN (01:15)
[2020-02-29] MEDS ORDERED: DEXTROSE (50%) 50ML SYRG IV PRN (01:15)
[2020-02-29] MEDS: SODIUM CHLORIDE 0.9% 1,000 ML IV SCH ×2 (02:06→14:31)
[2020-02-29 02:22] LABS: INR 1.23 (0.9-1.15); Partial Thromboplastin Time 29.2 sec (23.0-31.2)
[2020-02-29] MEDS: InsuLIN REG 1unit/0.01ml Soln (100units/ml) SC SCH ×6 (05:06→21:18)
[2020-02-29] MEDS: ACCU-CHEK COMFORT CURVE STRIP VI SCH ×5 (05:07→21:18)
[2020-02-29 07:25] LABS: Urine Bacteria NONE SEEN /hpf (None Seen); Urine Blood Negative /uL (Negative); Urine Hyaline Cast FEW /lpf (0 - 2); Urine Specific Gravity 1.016 (1.001-1.035); Urine WBC 55 /hpf (0 - 3); Urine WBC Clumps PRESENT /hpf (None Seen)
[2020-02-29] MEDS ORDERED: CLOPIDOGREL BISULFATE 75 MG TAB PO SCH (10:00)
[2020-02-29] MEDS ORDERED: LISINOPRIL 10 MG TAB PO SCH (10:00)
[2020-02-29] MEDS ORDERED: ASPirin 81 mg TAB PO SCH (10:00)
[2020-02-29] MEDS: DOCUSATE SOD 100 MG CAP PO SCH (10:11)
[2020-02-29] MEDS: CARVEDILOL 3.125 MG TAB PO SCH ×2 (10:13→22:31)
[2020-02-29] MEDS ORDERED: ENOXAPARIN SOD 60 MG/0.6 ML SYRINGE SC SCH (11:00)
[2020-02-29 14:18] LABS: Hematocrit 27.8 % (41.0-53.0); Hemoglobin 8.4 g/dL (13.5-17.5)
[2020-02-29 22:00] LABS: Hematocrit 29.8 % (41.0-53.0); Hemoglobin 9.5 g/dL (13.5-17.5)
[2020-02-29 22:17] LABS: % Iron Saturation 47.3 % (20-55)
[2020-02-29] MEDS: PANTOPRAZOLE 40 MG/10 ML VIAL INJ IV SCH (22:29)
[2020-02-29] MEDS: ATORVASTATIN 20 MG TAB PO SCH (22:31)
[2020-03-01] MEDS: ACCU-CHEK COMFORT CURVE STRIP VI SCH ×7 (00:18→23:58)
[2020-03-01] MEDS: InsuLIN REG 1unit/0.01ml Soln (100units/ml) SC SCH ×6 (00:18→19:38)
--- NOTE | 2020-03-01 03:00 | NUR ---
Received ED Report Received ED Report from Zeeshan AGUSTIN
--- NOTE | 2020-03-01 03:05 | NUR ---
Patient Arrived To Unit Patient arrived to unit via stretcher patient moved to bed via two person assist, patient A/O x2, Patient unaware he is in hospital, and asking for . Sacrum is pink and blanchable, patient running ns at 75. patient change and set up for monitoring.
[2020-03-01 03:30] VITALS: BP 94/50
[2020-03-01] MEDS: SODIUM CHLORIDE 0.9% 1,000 ML IV SCH ×3 (03:51→09:34)
[2020-03-01 04:00] VITALS: BP 100/34
--- NOTE | 2020-03-01 04:00 | NUR ---
Blood Surgar 63 Patient blood sugar is 63 provided patient with orange juice will continue to monitor
[2020-03-01] MEDS ORDERED: ENOXAPARIN SOD 60 MG/0.6 ML SYRINGE SC SCH (06:00)
--- NOTE | 2020-03-01 06:11 | NUR ---
Blood Sugar 100 Recheck of patient blood sugar after [place] Juice intervention patient bs is now 100
--- NOTE | 2020-03-01 06:55 | NUR ---
END of Shift Will provide shift report to Day Shift RN, and endorse care patient is laying quietly in bed no s/s of distress or pain at this time.
--- NOTE | 2020-03-01 07:05 | NUR ---
REPORT RECEIVED FROM GLOVE MAKER RN
[2020-03-01 08:00] VITALS: BP 103/57
--- NOTE | 2020-03-01 08:01 | NUR ---
COMPLETE LINEN CHANGE PERFORMED AT THIS TIME
--- NOTE | 2020-03-01 08:50 | NUR ---
ECHO AT BEDSIDE Addendum: 03/01/20 at 0910 by Riley Mead RN ULTRASOUND NOT ECHO
[2020-03-01] MEDS: ENOXAPARIN SOD 60 MG/0.6 ML SYRINGE SC SCH (09:32)
[2020-03-01] MEDS: PANTOPRAZOLE 40 MG/10 ML VIAL INJ IV SCH ×2 (09:32→21:39)
[2020-03-01] MEDS: CARVEDILOL 3.125 MG TAB PO SCH ×2 (09:33→21:39)
[2020-03-01] MEDS: DOCUSATE SOD 100 MG CAP PO SCH (09:33)
[2020-03-01 10:15] LABS: Basophils # (auto) 0.1 10 ^3/uL (0-0.2); Basophils % (auto) 0.6 % (0.0-2.0); Eosinophils # (auto) 0.5 10 ^3/uL (0-0.8); Hematocrit 29.8 % (41.0-53.0); Hemoglobin 9.6 g/dL (13.5-17.5); Lymphocytes # (auto) 1.2 10 ^3/uL (0.4-5.4); Lymphocytes % (auto) 10.9 % (10.0-50.0); Mean Corpuscular Hemoglobin 31.5 pg (28.0-32.0); Mean Corpuscular Hgb Conc. 32.3 g/dL (32.0-36.0); Mean Corpuscular Volume 97.4 fL (80.0-100.0); Monocytes # (auto) 0.7 10 ^3/uL (0-1.3); Neutrophils # (auto) 8.8 10 ^3/uL (1.6-8.6); Neutrophils % (auto) 78.5 % (37.0-80.0); Nucleated Red Blood Cells % 0.1 %; Platelet Count (auto) 248 10^3/uL (140-450); Red Blood Cells 3.06 10^6/uL (4.5-5.90); Red Cell Distribution Width 17.4 % (11.8-14.3); White Blood Cell 11.3 10^3/uL (4.4-10.8)
[2020-03-01 10:25] LABS: Albumin 1.5 g/dL (3.4-5.0); Calcium 7.6 mg/dL (8.5-10.1); Potassium 4.2 mmol/L (3.5-5.1)
[2020-03-01 10:30] LABS: BUN/Creatinine Ratio 19.6; Bilirubin, Total 0.7 mg/dL (0.2-1.0); Total Protein 5.1 g/dL (6.4-8.2)
--- NOTE | 2020-03-01 10:47 | NUR ---
FAMILY UPDATED ON PATIENT STATUS. ALL QUESTIONS AND CONCERNS ADDRESSED AT THIS TIME
[2020-03-01 12:00] VITALS: BP 103/54
--- NOTE | 2020-03-01 13:55 | NUR ---
DR. MARTIN AT BEDSIDE
[2020-03-01 15:53] VITALS: BP 108/57
--- NOTE | 2020-03-01 16:54 | NUR ---
BOWEL MOVEMENT PATIENT HAD LARGE BOWEL MOVEMENT AND INCOTINENT OF URINE. COMPLETE LINEN CHANGE PERFORMED AT THIS TIME
[2020-03-01 20:00] VITALS: BP 118/60
--- NOTE | 2020-03-01 20:00 | NUR ---
SHIFT OPENING NOTE RECEIVED PATIENT LAYING IN BED WITH EYES CLOSED. OPENED EYES TO VOICE AND LIGHT TOUCH. PATIENT IS ALERT AND ORIENTED X2. CONFUSED. ON ROOM AIR. NO SOB, DISTRESS OR PAIN NOTED. NS INFUSING AT 75 ML/H. PHYSICAL ASSESSMENT COMPLETED, SEE INTERVENTIONS. INSTRUCTED ON POC AND TO CALL OR ASSIST NEEDED. BED IS IN THE LOWEST POSITION WITH SIDE RAILS UP X2, CALL LIGHT IS WITHIN REACH.
--- NOTE | 2020-03-01 21:08 | NUR ---
SPOKE WITH SHIVA UPDATED HER ON PATIENTS CONDITION AND POC VERBALIZED UNDERSTANDING.
[2020-03-01] MEDS: ATORVASTATIN 20 MG TAB PO SCH (21:39)
[2020-03-02] VITALS: BP 105/53
--- NOTE | 2020-03-02 00:05 | NUR ---
ROUNDS PATIENT QUIETLY LAYING IN BED SLEEPING. NO SOB, DISTRESS OR PAIN NOTED. WILL CONTINUE TO CLOSELY MONITOR.
[2020-03-02 03:12] LABS: Basophils # (auto) 0.1 10 ^3/uL (0-0.2); Basophils % (auto) 0.5 % (0.0-2.0); Eosinophils # (auto) 0.3 10 ^3/uL (0-0.8); Eosinophils % (auto) 2.7 % (0.0-7.0); Hematocrit 29.9 % (41.0-53.0); Hemoglobin 9.6 g/dL (13.5-17.5); Lymphocytes # (auto) 0.9 10 ^3/uL (0.4-5.4); Lymphocytes % (auto) 8.7 % (10.0-50.0); Mean Corpuscular Hemoglobin 31.5 pg (28.0-32.0); Mean Corpuscular Volume 98.5 fL (80.0-100.0); Monocytes # (auto) 0.5 10 ^3/uL (0-1.3); Monocytes % (auto) 4.8 % (0.0-12.0); Neutrophils # (auto) 8.4 10 ^3/uL (1.6-8.6); Neutrophils % (auto) 83.3 % (37.0-80.0); Platelet Count (auto) 268 10^3/uL (140-450); Red Blood Cells 3.03 10^6/uL (4.5-5.90); Red Cell Distribution Width 16.9 % (11.8-14.3); White Blood Cell 10.1 10^3/uL (4.4-10.8)
[2020-03-02 03:31] LABS: Potassium 3.9 mmol/L (3.5-5.1)
[2020-03-02 03:38] LABS: Albumin 1.6 g/dL (3.4-5.0); BUN/Creatinine Ratio 21.4; Bilirubin, Total 0.5 mg/dL (0.2-1.0); Calcium 7.3 mg/dL (8.5-10.1); Total Protein 4.9 g/dL (6.4-8.2)
[2020-03-02 04:00] VITALS: BP 113/56
[2020-03-02] MEDS: InsuLIN REG 1unit/0.01ml Soln (100units/ml) SC SCH ×7 (04:00→23:21)
[2020-03-02] MEDS: ACCU-CHEK COMFORT CURVE STRIP VI SCH ×5 (04:34→23:21)
[2020-03-02] MEDS: SODIUM CHLORIDE 0.9% 1,000 ML IV SCH ×2 (04:34→18:51)
--- NOTE | 2020-03-02 04:35 | NUR ---
MORNING HYGIENE CARE PATIENT HAD AN EPISODE OF BOWEL AND URINE INCONTINENCE. FULL BED BATH PERFORMED USING CHG WIPES AND WARM SOAPY WASH CLOTHES. GOWN CHANGED. FULL LINEN CHANGE. PATIENT REPOSITIONED FOR COMFORT. TOLERATED IT WELL.
--- NOTE | 2020-03-02 07:25 | NUR ---
END OF SHIFT REPORT GIVEN AND CARE ENDORSED TO EVELIN VAMSI.
[2020-03-02 07:45] VITALS: BP 113/61
--- NOTE | 2020-03-02 08:15 | NUR ---
Breakfast tray provided, patient refused at this time, BS 136 will hold insulin and continue to monitor. Continue IV as ordered, offered water but patient refused.
[2020-03-02] MEDS: DOCUSATE SOD 100 MG CAP PO SCH (09:27)
--- NOTE | 2020-03-02 09:28 | NUR ---
Held Colace due to loose stool this morning.
[2020-03-02] MEDS: PANTOPRAZOLE 40 MG/10 ML VIAL INJ IV SCH ×2 (09:29→21:45)
[2020-03-02] MEDS: ENOXAPARIN SOD 60 MG/0.6 ML SYRINGE SC SCH (09:29)
[2020-03-02] MEDS: CARVEDILOL 3.125 MG TAB PO SCH ×2 (09:30→21:46)
--- NOTE | 2020-03-02 09:40 | NUR ---
Received a call from his , password provided. Updated patient's condition and POC.
--- NOTE | 2020-03-02 10:49 | NUR ---
Dr. Monteiro at the bedside, seen patient this morning, no new order noted.
[2020-03-02 11:45] VITALS: BP 110/58
--- NOTE | 2020-03-02 12:10 | NUR ---
BM with brown color with solid. Perineal care and partial linen changed.
--- NOTE | 2020-03-02 12:38 | NUR ---
Patient NPO at this time. Sent stool sample to Lab.
--- NOTE | 2020-03-02 13:00 | NUR ---
Echocardiogram at the bedside.
--- NOTE | 2020-03-02 14:55 | NUR ---
Called and spoke to Katie () regarding the consent for EGD, Katie stated that she would like to talk to Dr. Medrano first. Called and left the message to Dr. Medrano, left Katie phone number for MD to call her back. Will continue to monitor and care.
[2020-03-02] MEDS: ALBUMIN 25% 100 ML IV SCH ×2 (15:30→23:21)
--- NOTE | 2020-03-02 15:30 | NUR ---
Dr. Bagley at the bedside, received order for insert F/C for monitoring urine out put.
[2020-03-02 16:00] VITALS: BP 130/54
--- NOTE | 2020-03-02 16:15 | NUR ---
Tried to insert F/C and unable to insert due to narrowing of meatus. Paged Dr. Monteiro for Urology consult F/C insertion and Mid line insertion for IV and Medication.
--- NOTE | 2020-03-02 16:37 | NUR ---
Called PBX for new consult for Urology consult, left the message to MD to call back.
[2020-03-02] MEDS: SUCRALFATE 1 GM/10 ML ORAL SUSP GT SCH (17:00)
--- NOTE | 2020-03-02 17:17 | NUR ---
Tried insert F/C No 14, unable to get through.
--- NOTE | 2020-03-02 18:00 | NUR ---
Removed IV at right AC.
--- NOTE | 2020-03-02 18:05 | NUR ---
BM mixed urine around 300 ml. perineal care provided and partial linen changed.
--- NOTE | 2020-03-02 18:11 | NUR ---
Midline Placement: Patient educated on need for midline placement. All risks and benefits explained and all questions and concerns addresses prior to procedure. 4 Fr 20cm midline inserted via brachial vein using Ultrasound. Sterile technique utilized. Blood return obtained from the single lumen and flushed easily with NS using proper technique. Midline secured with saline lock; biodisc and occlusive dressing applied. Primary RN notified. Midline lot #[id number]. INTERNAL LENGTH 20CM EXTERNAL LENGTH 0CM
[2020-03-02 21:33] VITALS: BP 135/60
[2020-03-02] MEDS: ATORVASTATIN 20 MG TAB PO SCH (21:46)
--- NOTE | 2020-03-02 21:47 | NUR ---
SPOKE TO SHIVA () UPDATED HER ON PATIENTS STATUS AND POC. ALL QUESTION AND CONCERNS ADDRESSED. SHE STATED THAT SHE SPOKE WITH Navin MARTIN, AND AWARE THAT PATIENT'S EGD IS CANCELED.
--- NOTE | 2020-03-02 23:22 | NUR ---
MID NIGHT INSULIN HELD PATIENT IS NOT EATING
[2020-03-03 00:01] VITALS: BP 131/44
[2020-03-03 03:20] LABS: Hematocrit 25.9 % (41.0-53.0); Hemoglobin 8.2 g/dL (13.5-17.5)
[2020-03-03 03:36] LABS: INR 1.42 (0.9-1.15)
[2020-03-03 03:41] LABS: Albumin 2.5 g/dL (3.4-5.0); Calcium 7.3 mg/dL (8.5-10.1); Magnesium 2.5 mg/dL (1.6-2.6); Potassium 3.8 mmol/L (3.5-5.1)
[2020-03-03 03:45] LABS: BUN/Creatinine Ratio 21.4; Total Protein 5.1 g/dL (6.4-8.2)
[2020-03-03 04:00] VITALS: BP 114/39
[2020-03-03] MEDS: ACCU-CHEK COMFORT CURVE STRIP VI SCH ×3 (05:21→18:29)
[2020-03-03] MEDS: SUCRALFATE 1 GM/10 ML ORAL SUSP GT SCH ×2 (05:21→18:30)
[2020-03-03] MEDS: InsuLIN REG 1unit/0.01ml Soln (100units/ml) SC SCH ×3 (05:23→18:29)
[2020-03-03 06:00] VITALS: BP 100/47
[2020-03-03] MEDS: ALBUMIN 25% 100 ML IV SCH (06:42)
[2020-03-03 07:50] VITALS: BP 97/48
--- NOTE | 2020-03-03 08:25 | NUR ---
ASSESSMENT WOKE PT FOR ASSESSMENT AND HE IS A/O TO SELF ONLY. FOLLOWS SIMPLE COMMANDS. NOT VERY TALKATIVE. GENERALIZED WEAKNESS NOTED. LUNGS CLEAR THROUGHOUT. ROOM AIR SAT OF 90%. TELE SR 61 WITH FIRST DEGREE HEART BLOCK. PALPABLE PULSES TO ALL EXTREMITIES. ABD SOFT WITH + BOWEL SOUNDS. LAST BM WAS ON 03/02. PT INCONTINENT OF SMALL AMOUNT OF URINE. RACHEL CARE PROVIDED AND PARTIAL LINEN CHANGE DONE. SKIN WITH BLANCHABLE PINK AREA NOTED TO HIS RECTAL AREA. TUNED FOR COMFORT. CONTINUE TO MONITOR.RAILS UP X4 AND BED IN LOW POSITION FOR PT SAFETY.
--- NOTE | 2020-03-03 10:25 | NUR ---
MD VISIT PT SEEN AND EXXAMINED BY DR MONSALVE. SHE IS ORDERING FOR PT TO BE DOWNGRADED TO TELE STATUS.
[2020-03-03 10:27] LABS: Folate (Folic Acid) 19.29 ng/mL (5.38-24)
[2020-03-03] MEDS: SODIUM CHLORIDE 0.9% 1,000 ML IV SCH (10:59)
[2020-03-03] MEDS: ENOXAPARIN SOD 60 MG/0.6 ML SYRINGE SC SCH (11:00)
[2020-03-03] MEDS: PANTOPRAZOLE 40 MG/10 ML VIAL INJ IV SCH ×2 (11:00→21:58)
[2020-03-03] MEDS: DOCUSATE SOD 100 MG CAP PO SCH (11:00)
[2020-03-03] MEDS: CARVEDILOL 3.125 MG TAB PO SCH ×2 (11:13→21:58)
--- NOTE | 2020-03-03 11:15 | NUR ---
HELD SCHEDULED COREG DUE TO BP 101/51. ATTEMPTED TO GIVE PT HIS COLACE . HE SWALLOWED THE WATER AND SPIT OUT THE PILL. Addendum: 03/03/20 at 1137 by Lissa He RN INCONTINENT OF MODERATE AMOUNT OF LOOSE WATERY BROWN BM. RACHEL CARE GIVEN AND PARTIAL LINEN CHANGE DONE.
[2020-03-03 12:00] VITALS: BP 105/50
[2020-03-03] MEDS: SODIUM BICARBONATE 50ML VIAL 50 ML in SOD CHL 0.45% 1,000 ML IV SCH (12:45)
--- NOTE | 2020-03-03 12:46 | NUR ---
PT INCONTINENT OF SMALL AMOUNT OF LIQUID BROWN BM. RACHEL CARE GIVEN AND Z GUARD CREAM APPLIED.
[2020-03-03 13:47] LABS: Hepatitis B Surface Antigen Negative (Negative); Hepatitis C Antibody Negative (Negative)
--- NOTE | 2020-03-03 14:29 | NUR ---
FAMILY/PHONE RECEIVED A PHONE CALL FROM PT'S , SHIVA. AFTER VERIFYING THE PASSWORD, I UPDATED HER AND ANSWERED HER QUESTIONS. SHE HAS A FEW QUESTIONS FOR DR MONSALVE, SO I WILL PAGE HER AND REQUEST THAT SHE CALL [address]. [phone]
--- NOTE | 2020-03-03 14:35 | NUR ---
SPOKE WITH DR MONSALVE AND SHE WILL CONTACT THE PT'S .
[2020-03-03 16:00] VITALS: BP 120/60
--- NOTE | 2020-03-03 16:47 | NUR ---
Nutrition Assessment Notes Please refer to link for full assessment notes. Est Energy needs: [id number] kcals (20-23 kcal/kgBW) Est Protein needs: 71-78 gms/day (1.0-1.1 gm/kgBW) Will continue to monitor and reassess prn. Addendum: 03/03/20 at [address] Amended: Links added.
--- NOTE | 2020-03-03 17:30 | NUR ---
FAMILY SPOKE WITH THE PT'S , SHIVA, ON THE PHONE AND THEN SHE ATTEMPTED TO SPEAK WITH HER , BUT HE WAS NOT RESPONDING . SHE TALKED WITH DR SALAZAR ABOUT TAKING THE PT HOME TONIGHT, I DID CAUTION HER THAT HE IS UNABLE TO DO ANYTHING FOR HIMSELF AT THIS TIME, IS INCONTINENT, AND NOT EATING AND THAT I AM CONCERNED HE COULD GET DEHYDRATED AGAIN. SHE STATED SHE HAS NO ONE TO HELP HER AT HOME TO ASSIST HER IN CARING FOR THE PT. WE DISCUSSED THE POSSIBILITY OF HOSPICE. DR BRAGA CAME IN TO THE ROOM AND HE THEN SPOKE WITH THE PT'S AND THEY DECIDED TO WAIT UNTIL TOMORROW TO SEE ABOUT DISCHARGING THE PT HOME AND GET A HOSPICE EVALUATION. Addendum: 03/03/20 at 2012 by Lissa He RN [facility] SOCIAL SERVICE CONSULT.
--- NOTE | 2020-03-03 18:20 | NUR ---
REPORT PT BEING TRANSFERRED TO ROOM 275A WITH [facility] KYLE. REPORT CALLED AND PT WILL BE ON TELE # [phone].
--- NOTE | 2020-03-03 19:06 | NUR ---
CAME ON BED FROM JULIANA, ALERT AND ORIENTED X1, NOT IN DISTRESS, ON DNR STATUS, DIMINISHED LS IN BILATERAL LING LOBES, RR=20 SAT=95% IN O2 2L NC, NO S/S OF SOB OR CP, SR R=64 ON TELE MONITOR, ABDOMEN SOFT WITH ACTIVE BS, INCONTINENT, BLANCHABLE REDNESS ON SACRUM NOTED, GENERAL SKIN INTACT WARM TO TOUCH, RADIAL AND PEDAL PULSES PALPABLE, RESTING ON BED, HEAD OF BED ELEVATED, BED ON LOW POSITION, RAILS UP X2, CALL LIGHTS ON REACH, SITTER IN THE ROOM, VA T=97.8, RR=16, SAT=95%, P=64 UO=387/73, REPORT WILL BE GIVEN TO THE SPECIAL EDUCATION PARAEDUCATOR RN.
--- NOTE | 2020-03-03 19:40 | NUR ---
RESTING ON BED HEAD OF BED ELEVATED, BED ON LOW POSITION, RAILS UP X2, CALL LIGHT ON REACH, REPORT WAS GIVEN TO THE LEHR ATTENDANT RN.
[2020-03-03] MEDS: ATORVASTATIN 20 MG TAB PO SCH (21:58)
[2020-03-04] MEDS: ACCU-CHEK COMFORT CURVE STRIP VI SCH ×3 (00:06→12:15)
[2020-03-04 05:00] VITALS: BP 96/50
[2020-03-04] MEDS: SUCRALFATE 1 GM/10 ML ORAL SUSP GT SCH (06:24)
[2020-03-04] MEDS: InsuLIN REG 1unit/0.01ml Soln (100units/ml) SC SCH ×3 (06:24→12:00)
[2020-03-04 06:57] LABS: Basophils # (auto) 0 10 ^3/uL (0-0.2); Basophils % (auto) 0.3 % (0.0-2.0); Eosinophils # (auto) 0.2 10 ^3/uL (0-0.8); Eosinophils % (auto) 1.7 % (0.0-7.0); Hematocrit 27.5 % (41.0-53.0); Hemoglobin 8.5 g/dL (13.5-17.5); Lymphocytes # (auto) 0.9 10 ^3/uL (0.4-5.4); Lymphocytes % (auto) 8.2 % (10.0-50.0); Mean Corpuscular Hemoglobin 31.4 pg (28.0-32.0); Mean Corpuscular Hgb Conc. 30.8 g/dL (32.0-36.0); Monocytes # (auto) 0.5 10 ^3/uL (0-1.3); Monocytes % (auto) 4.7 % (0.0-12.0); Neutrophils # (auto) 9.5 10 ^3/uL (1.6-8.6); Neutrophils % (auto) 85.1 % (37.0-80.0); Nucleated Red Blood Cells % 0.1 %; Platelet Count (auto) 201 10^3/uL (140-450); Red Cell Distribution Width 17.7 % (11.8-14.3); White Blood Cell 11.1 10^3/uL (4.4-10.8)
[2020-03-04] MEDS: SODIUM BICARBONATE 50ML VIAL 50 ML in SOD CHL 0.45% 1,000 ML IV SCH (06:57)
[2020-03-04 07:12] LABS: Albumin 2.4 g/dL (3.4-5.0); Calcium 7.7 mg/dL (8.5-10.1); Potassium 3.8 mmol/L (3.5-5.1)
[2020-03-04 07:16] LABS: BUN/Creatinine Ratio 20.1; Bilirubin, Total 0.8 mg/dL (0.2-1.0); Total Protein 5.2 g/dL (6.4-8.2)
[2020-03-04 07:30] LABS: Phosphorus 5.2 mg/dL (2.5-4.90); Uric Acid 7.7 mg/dL (3.5-7.2)
--- NOTE | 2020-03-04 07:45 | NUR ---
RECEIVED PATIENT ALERT AND ORIENTED X1, NOT IN DISTRESS, ON DNR STATUS, DIMINISHED LS IN BILATERAL LING LOBES, RR=16 SAT=96% IN O2 2L NC, NO S/S OF SOB OR CP, SR R=74 ON TELE MONITOR, ABDOMEN SOFT WITH ACTIVE BS, LAST BM TIS MORNING REPORTED, INCONTINENT, BLANCHABLE REDNESS ON BUTTOCK CHECKS NOTED, GENERAL SKIN INTACT WARM TO TOUCH, RADIAL AND PEDAL PULSES PALPABLE, CAP REFILL <3 SECONDS, RESTING ON BED, HEAD OF BED ELEVATED, BED ON LOW POSITION, RAILS UP X2, CALL LIGHTS ON REACH, WILL CONTINUE MONITORING.
[2020-03-04 09:00] VITALS: BP 95/48
[2020-03-04] MEDS ORDERED: FUROSEMIDE 40 MG/4 ML VIAL IV SCH (10:00)
[2020-03-04] MEDS: CARVEDILOL 3.125 MG TAB PO SCH (10:00)
[2020-03-04] MEDS: DOCUSATE SOD 100 MG CAP PO SCH (10:00)
[2020-03-04] MEDS ORDERED: SODIUM BICARBONATE 50ML VIAL 50 ML in D5W 5% 1,000 ML IV SCH (10:30)
[2020-03-04] MEDS: PANTOPRAZOLE 40 MG/10 ML VIAL INJ IV SCH (10:34)
[2020-03-04] MEDS: ENOXAPARIN SOD 60 MG/0.6 ML SYRINGE SC SCH (10:35)
[2020-03-04 13:00] VITALS: BP 111/75
--- NOTE | 2020-03-04 13:00 | NUR ---
PENDING D/C TODAY ORDERED, SS PROCESSED D/C WITH HOSPICE, HOSPICE PERSONNEL CAME TO ASSESS THE PATIENT, TRANSPORTATION ARRANGEMENT DONE ASSOCIATE SCIENTIST TIME 1600 REPORTED BT SS, SHIVA WAS CALLED ON [phone] AND NOTIFIED, VERBALIZED UNDERSTANDING, RESTING ON BED, NOT IN DISTRESS, DENIED PAIN, SOFT LIGHT BROWN BM X2 NOTED, SKIN KEEP CLEAN AND DRY, WILL CONTINUE MONITORING.
[2020-03-04 13:39] VITALS: BP 98/57
[2020-03-04 16:35] VITALS: BP 118/56
--- NOTE | 2020-03-04 16:52 | NUR ---
Assessment Patient is an 84-year-old male. Assessment was completed with patient Luisa . Per Luisa prior to admission patient lived home with her and functioned with assistance. Patient has a walker, wheelchair and shower chair for home use. Per Luisa patient will return home to his prior living arrangements post discharge. Advised Luisa there is a social service consult hospice vs. Palliative of care. Luisa requested [facility]. Informed Luisa she has a right to participate in all discharge planning. Luisa verbalized understanding and agreed to discharge plan. faxed clinical information to [facility]. Per Taylor with hospice patient has been accepted and service to start upon /. Transportation has been arranged with [employer] via [employer] at 16:00. Informed [facility] Arvizu. Addendum: 03/04/20 at 1701 by FLETCHER ANTON Amended: Links added.
--- NOTE | 2020-03-04 16:59 | NUR ---
D/C INSTRUCTIONS AND FOLLOW UP WITH PCP INFORMATION PAPERS IN [place] WAS PROVIDED AND GIVEN TO TRANSPORTATION PERSONNEL, D/C TELE AND MID LINE IV SITE FROM RT. UPPER ARM, TOLERATED WELL, NOT IN DISTRESS, DENIED PAIN, VS T=97.8 RR=18 SAT=98% P=76 MH=216/64, D/C HOME ON GURNEY ACCOMPANIED BY TRANSPORTATION PERSONNEL, TOOK ALL BELONGINGS AND LEFT NOTHING BEHIND.
== END 2020-03-04 16:25 | disposition hospice, home (50) | DRG 280 ==
LOC: EDBD 19:17 → ER 19:17 → TELE 19:18 → DOU IN ICU 03-01 03:05 → TELE-WESTW 03-03 17:27
PROVIDERS: ADMIT Hospitalist; ATTEND Internal Medicine Nephrology
PROC: 30233N1 Transfusion of Nonautologous Red Blood Cells into Peripheral Vein, Percutaneous Approach (ICD-10-PCS; principal; 2020-02-29)
DX: I21.4 Non-ST elevation (NSTEMI) myocardial infarction (principal); N17.0 Acute kidney failure with tubular necrosis; N39.0 Urinary tract infection, site not specified; N18.4 Chronic kidney disease, stage 4 (severe); I13.0 Hypertensive heart and chronic kidney disease with heart failure and stage 1 through stage 4 chronic kidney disease, or unspecified chronic kidney disease; E87.2 Acidosis; E87.0 Hyperosmolality and hypernatremia; E44.0 Moderate protein-calorie malnutrition; I25.10 Atherosclerotic heart disease of native coronary artery without angina pectoris; M10.9 Gout, unspecified; E11.319 Type 2 diabetes mellitus with unspecified diabetic retinopathy without macular edema; E11.22 Type 2 diabetes mellitus with diabetic chronic kidney disease; E78.5 Hyperlipidemia, unspecified; E11.40 Type 2 diabetes mellitus with diabetic neuropathy, unspecified; E11.65 Type 2 diabetes mellitus with hyperglycemia; N40.0 Benign prostatic hyperplasia without lower urinary tract symptoms; I25.2 Old myocardial infarction; Z86.73 Personal history of transient ischemic attack (TIA), and cerebral infarction without residual deficits; Z91.19 Patient's noncompliance with other medical treatment and regimen; Z95.5 Presence of coronary angioplasty implant and graft; Z74.01 Bed confinement status; Z90.49 Acquired absence of other specified parts of digestive tract; Z88.0 Allergy status to penicillin; Z20.828 Contact with and (suspected) exposure to other viral communicable diseases; D63.8 Anemia in other chronic diseases classified elsewhere
CPT/HCPCS: 36415; 71045; 76775; 80053; 80061; 81001; 82270; 82306; 82607; 82728; 82746; 82962; 83036; 83540; 83550; 83605; 83735; 83970; 84100; 84484; 84550; 85014; 85018; 85025; 85610; 85730; 86803; 86850; 86900; 86901; 86920; 87040; 87081; 87340; 87426; 93005; 93306; C9113; G0378; J1815; P9047